=== PATIENT | male | born 1975 | race Caucasian/White ===

== ENCOUNTER 2018-01-25 14:15 | Emergency (ER) | payer MEDICAID ==
[~2018-01-25] VITALS: Ht 170.2 cm; Wt 70.0 kg
[2018-01-25 14:17] VITALS: BP 113/78
== END 2018-01-25 15:16 | disposition home or self-care (01) ==
LOC: ER 14:15
DX: M54.5 Low back pain (principal); V49.59XA Passenger injured in collision with other motor vehicles in traffic accident, initial encounter; Y93.89 Activity, other specified; Y92.488 Other paved roadways as the place of occurrence of the external cause
CPT/HCPCS: 99283